=== PATIENT | male | born 1960 | race Caucasian/White ===

== ENCOUNTER → 2016-10-17 | Outpatient (CLI) | payer BC ==
[~2016-10-17] MED LIST: ACTOS PO; ASPIRIN PO; ASPIRIN81 M1 PO; AUGMENTIN PO; FLAGYL PO; LEVAQUIN750 MG PO; LIPITOR PO; LOTREL 5/20 MG1 CAP PO; METFORMIN PO; NIASPAN PO; PERCOCET 51 UDTAB 5/ DOB; PLAVIX PO
--- NOTE | ~2016-10-17 | ST ---
Unit #: [id number] #: [id number] Patient: JANA VILLA [id number] [address] [address] [id number] O MR#: [id number] NAME: JANA VILLA. : 1960 SEX: M STUDY DATE/TIME: 10/17/2016 UNIT: [facility] ROOM: STUDY DESCRIPTION: Stress test Attending Physician: Rebel Bourgeois M.D. Referring Physician: Rebel Bourgeois M.D. Primary Care Physician: Rebel Bourgeois M.D. CARDIOLOGY REPORT EXAM Plain treadmill stress test INDICATION Chest discomfort. SUMMARY Patient underwent nuclear stress test, exercised for seven minutes and five seconds, achieving a work level METs of 10.1. Patient's resting blood pressure 131/95 mmHg, which increased to 138/76 mmHg. The patient's resting heart rate 89 beats a minute which increased to 146 beats per minute representing 90% of the maximum age-predicted heart rate. The patient's resting ECG shows normal sinus rhythm with normal ST segments. The patient's stress ECG shows normal sinus rhythm with [address]-segment depression seen in inferolateral leads. CONCLUSION 1. Abnormal plain treadmill stress test concerning for ischemia. 2. Fair exercise tolerance. 3. Normal blood pressure and heart rate response to exercise. 4. Clinical correlation needed. Dictated by... Maycol Garber/toñito TD: 10/17/2016 21:21 JOB #: [id number] Unit #: [id number] #: [id number] Patient: JANA VILLA CARDIOLOGY REPORT Page 1 of 1 X ISABELA GARNER MD CARDIOLOGY REPORT
== END | disposition home or self-care (01) ==
LOC: CEKG 09:32
DX: I10 Essential (primary) hypertension (principal); E11.9 Type 2 diabetes mellitus without complications; E78.5 Hyperlipidemia, unspecified; Z82.49 Family history of ischemic heart disease and other diseases of the circulatory system; R94.39 Abnormal result of other cardiovascular function study
CPT/HCPCS: 93017